=== PATIENT | male | born 1990 | race Caucasian/White ===

== ENCOUNTER 2018-01-06 21:24 | Emergency (ER) | payer SELFPAY ==
[2018-01-06 21:50] VITALS: BP 144/83
[2018-01-06] MEDS ORDERED: OXYCODONE-ACETAMINOPHEN 5-325 MG TABLET PO ONE (22:44)
[2018-01-06] MEDS ORDERED: LIDOCAINE 1% INJ-PF (10 MG/ML) 30 ML SDV INJ ONE (22:44)
[2018-01-06] MEDS ORDERED: SULFAMETHOXAZOLE/TRIMETHOPRIM 800-160 MG TABLET PO ONE (22:44)
[2018-01-06] MEDS ORDERED: CEPHALEXIN 500 MG CAPSULE PO ONE (22:44)
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
--- NOTE | 2018-01-06 23:14 | RADIOLOGY REPORT (SQ) ---
EXAM DESCRIPTION: XR FINGERS CLINICAL HISTORY: 27 years Male, pain and swelling COMPARISON: None. Findings: Small swelling of the left second finger. Bones, joints, and soft tissues of the XR LEFT second FINGERS appear otherwise intact. IMPRESSION: Swelling.
[2018-01-07] MEDS ORDERED: KETOROLAC TROMETHAMINE 60 MG/2 ML SDV IM ONE (00:06)
== END 2018-01-07 00:38 | disposition home or self-care (01) ==
LOC: ER 21:24
DX: L03.012 Cellulitis of left finger (principal)
CPT/HCPCS: 99283; 96372; 73140; 10060; J1885; J3490

== ENCOUNTER 2018-07-26 16:55 | Emergency (ER) | payer OTHER ==
[2018-07-26] MEDS ORDERED: IBUPROFEN 800 MG TABLET PO ONE (18:15)
[2018-07-26] MEDS ORDERED: HYDROCODONE/ACETAMINOPHEN 5-325 MG TABLET PO ONE (18:15)
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
[2018-07-26 22:59] VITALS: BP 136/73
== END 2018-07-26 19:48 | disposition home or self-care (01) ==
LOC: ER 16:55
DX: R51 Headache (principal); M54.9 Dorsalgia, unspecified; V49.40XA Driver injured in collision with unspecified motor vehicles in traffic accident, initial encounter
CPT/HCPCS: 70486; 72070; 72110; 99284